=== PATIENT | female | born 1990 | race Two or more races ===

== ENCOUNTER 2023-01-15 21:00 | Emergency (ER) | payer MEDICAID, OTHER ==
[~2023-01-15] VITALS: Ht 165.1 cm; Wt 56.8 kg
[2023-01-16 00:02] LABS: Hematocrit 32.3 % (36.0-46.0); Hemoglobin 10.9 g/dL (12.2-16.2); Mean Corpuscular Hemoglobin 32.8 pg (28.0-32.0); Mean Corpuscular Hgb Conc. 33.7 g/dL (32.0-36.0); Mean Corpuscular Volume 97.5 fL (80.0-100.0); Red Blood Cells 3.32 10^6/uL (4.0-5.20); Red Cell Distribution Width 14.2 % (11.8-14.3); White Blood Cell 5.7 10^3/uL (4.4-10.8)
[2023-01-16 00:12] LABS: Basophils % (manual) 0 (0.0-2.0); Blast Cells 0; Monocytes % (manual) 0 (0-12); Promyelocytes % 0; Reactive Lymphocytes 0
[2023-01-16 00:21] LABS: Alanine Aminotransferase 46 U/L (7-40); Albumin 3.6 g/dL (3.2-4.8); Alkaline Phosphatase 179 U/L (46-116); Anion Gap 9 (5-15); Aspartate Aminotransferase 125 U/L (13-40); BUN/Creatinine Ratio 16.3 (10.0-20.0); Blood Urea Nitrogen 8 mg/dL (9-23); Calcium 9.6 mg/dL (8.5-10.1); Carbon Dioxide 26 mmol/L (20-30); Chloride 105 mmol/L (98-107); Glucose 95 mg/dL (74-106); Potassium 3.6 mmol/L (3.5-5.1); Sodium 140 mmol/L (136-145)
[2023-01-16 00:22] LABS: Bilirubin, Total 6.6 mg/dL (0.2-1.0); Total Protein 9.6 g/dL (5.7-8.2)
[2023-01-16 00:29] LABS: Blood Alcohol 351.6 mg/dL (<10)
[2023-01-16 00:52] LABS: Lipase 35 U/L (12-53)
[2023-01-16 01:22] LABS: INR 1.77 (0.9-1.15); Prothrombin Time 17.9 sec (9.3-11.8)
[2023-01-16 03:36] LABS: Band Neutrophils % (manual) 6; Eosinophils % (manual) 1 (0-7); Lymphocytes % (manual) 29 (10.0-50.0); Metamyelocytes % 10; Myelocytes % 3; Platelet Estimate Adequate
[2023-01-16] MEDS ORDERED: IBUPROFEN 800 MG TAB PO ONE (07:00)
[2023-01-16] MEDS ORDERED: CEFD300C2 PO (07:54)
[2023-01-16] MEDS ORDERED: DICL50TA2 PO (07:54)
[2023-01-16] MEDS ORDERED: ACET300T51 PO (07:54)
[2023-01-16] MEDS ORDERED: cefTRIAXone 1GM/50ML D5W 50 ML IV ONE (08:00)
[2023-01-16] MEDS ORDERED: KETOROLAC TROMETH 30 MG/ML 1ML VIAL IV ONE (08:15)
[2023-01-16] MEDS: KETOROLAC TROMETH 30 MG/ML 1ML VIAL IV ONE ×2 (08:15→08:18)
[2023-01-16] MEDS: KETOROLAC TROMETH 60MG/2ML VIAL ONE ×2 (08:16→08:17)
[2023-01-16 08:30] VITALS: BP 125/68; PULSE 83; RESP 20; TEMP 97.8; O2SAT 100
== END 2023-01-16 08:53 | disposition home or self-care (01) ==
LOC: EDBD 21:00 → ER 21:00
DX: M79.662 Pain in left lower leg (principal); R10.2 Pelvic and perineal pain; F10.20 Alcohol dependence, uncomplicated; R17 Unspecified jaundice; F12.10 Cannabis abuse, uncomplicated; Y90.9 Presence of alcohol in blood, level not specified
CPT/HCPCS: 36415; 80053; 80320; 83690; 84702; 85007; 85027; 85610; 93971; 96365; 96375; 99285; J0696; J1885